=== PATIENT | male | born 1965 | race Caucasian/White ===

== ENCOUNTER 2016-10-19 11:12 | Observation (INO) ==
[2016-10-19 12:04] LABS: MANUAL DIFF NEEDED? NO; URINE CULTURE NEEDED? NO; URINE MICRO REVIEW NEEDED? NO; URINE SOURCE CLEAN CATCH
[2016-10-19 12:06] LABS: BASO% 1.5 % (0.0-0.8); EOS# 0.29 X1000 (0.0-0.7); EOS% 3.9 % (0.0-10.0); HEMATOCRIT 40.6 % (42.0-52.0); HEMOGLOBIN 14.6 g/dL (14.0-18.0); IMM GRAN# 0.05 X1000 (0.0-0.04); IMM GRAN% 0.7 % (0.0-0.5); LYMPH# 2.77 X1000 (1.2-3.4); LYMPH% 37.7 % (20.5-51.1); MCH 30.9 PG (27-31); MONO# 0.43 X1000 (0.11-0.59); MONO% 5.9 % (1.7-9.3); MPV 10.4 FL (7.4-10.4); NEUT% 50.3 % (42.2-75.2); PLT 219 X1000 (130-400); RBC 4.72 XMIL (4.7-6.1)
[2016-10-19 12:08] LABS: BILIRUBIN URINE NEGATIVE (NEGATIVE); BLOOD URINE NEGATIVE (NEGATIVE); COLOR STRAW; GLUCOSE URINE >1000 mg/dL (NEGATIVE); LEUKOCYTES URINE NEGATIVE (NEGATIVE); NITRITE URINE NEGATIVE (NEGATIVE); PH URINE 6.5; PROTEIN URINE NEGATIVE (NEGATIVE); SP GRAVITY URINE 1.022; TURBIDITY URINE CLEAR (CLEAR); UR EPITHELIAL CELLS <10 /HPF (<10); URINE BACTERIA NEGATIVE /HPF; URINE RBC <10 /HPF (<10); URINE WBC <10 /HPF (<10); UROBILINOGEN URINE NORMAL (NORMAL)
[2016-10-19 12:27] LABS: ALBUMIN 4.1 g/dL (3.5-5.0); TOTAL BILIRUBIN 0.47 mg/dL (0.20-1.00); TOTAL PROTEIN 7.1 g/dL (6.3-8.3)
[2016-10-19] MEDS ORDERED: HUMULIN R IV ONE (12:34)
[2016-10-19] MEDS: NS 2,000 ML IV ONE ×4 (12:50→15:17)
--- NOTE | 2016-10-19 13:00 | PROVIDER DOCUMENTATION ---
HPI-General Adult - General Chief Complaint: High Blood Sugar Stated Complaint: ELEVATED BLOOD SUGAR Time Seen by Provider: 10/19/16 12:34 Source: patient Allergies/Adverse Reactions: Patient Allergies Allergy/AdvReac Type Severity Reaction Status Date / Time No Known Allergies Allergy Verified 10/19/16 12:53 Home Medications: Home Medication List Medication Instructions Recorded Confirmed Last Taken Type Amphet Asp/Amphet/D-Amphet 10 mg PO QAM 10/19/16 10/19/16 1 Day Ago History [Adderall 10 mg Tablet] Bisoprolol [Zebeta] 5 mg PO DAILY 10/19/16 10/19/16 1 Day Ago History Fenofibrate,Micronized 134 mg PO QAM 10/19/16 10/19/16 1 Day Ago History [Fenofibrate] Fluticasone 50 Mcg Nasal [place] 1 spray LIZY DAILY 10/19/16 10/19/16 1 Day Ago History [Flonase] Indomethacin 50 mg PO BID 10/19/16 10/19/16 1 Day Ago History Losartan/Hydrochlorothiazide 1 each PO QAM 10/19/16 10/19/16 1 Day Ago History [Losartan-Hctz 100-25 mg Tab] Metformin [Glucophage] 500 mg PO WBREAKFAST 10/19/16 10/19/16 1 Day Ago History Omeprazole [Prilosec] 40 mg PO QAM 10/19/16 10/19/16 1 Day Ago History PRAVAstatin [Pravachol] 40 mg PO QHS 10/19/16 10/19/16 1 Day Ago History Zolpidem [Ambien] 10 mg PO HS PRN PRN 10/19/16 10/19/16 1 Day Ago History - History of Present Illness -Gen Adult Nature of Presenting Problems: patient is 51 y/o M that presents to the ER with elevated blood sugar. He had recent dx 6 months ago with DM. patient reports has had cough, body aches, fatigue over the past week in which the last 24 hours got worse. patient is a 6 beer a day drinker. Location of Pain/Injury: reports: generalized Pain Radiation: reports: no radiation Quality of Pain: reports: aching Severity: reports: mild, moderate Onset/Duration: reports: unsure Timing: reports: still present, constant Context/Activities at Onset: reports: none Modifying Factors: improves with: nothing Associated Symptoms: reports: weakness. denies: chest pain, cough, diarrhea, fever/chills, genitourinary problems, nausea, shortness of breath, vomiting Similar Symptoms Previously?: Yes Recently seen or treated by another doctor?: No - Diabetes Related Context Context: reports: high blood sugar Review of Systems - Adult - REVIEW OF SYSTEMS - ADULT Constitutional: reports: fatique. denies: chills, fever Eyes: denies: decreased vision, blurred vision, double vision Ears, Nose, Mouth & Throat: reports: sinus problem. denies: ear discharge, ear pain, throat pain, throat swelling Cardiovascular: denies: chest pain, edema, palpitations Respiratory: reports: cough. denies: dyspnea on exertion, excessive sputum production, shortness of breath, wheezing Gastrointestinal: denies: abdominal pain, diarrhea, nausea, vomiting Genitourinary: denies: dysuria, frequency, urgency Musculoskeletal: reports: muscle weakness. denies: back pain, neck pain Integumentary: reports: no symptoms reported Neurological: denies: dizziness/vertigo, headache/migraines, seizure, syncope Psychiatric: reports: no symptoms reported Endocrine: reports: no symptoms reported Hematologic/Lymphatic: reports: no symptoms reported Allergic/Immunologic: reports: no symptoms reported All Other Systems: Reviewed and Negative Past History - Adult - PAST MEDICAL HISTORY-ADULT Review of Records: reports: Old Records Reviewed, Nursing Assessment Review, Medications Reviewed Cardiovascular: reports: HTN, hyperlipidemia Respiratory: reports: sleep apnea Gastrointestinal: reports: GERD Psychiatric: reports: depression Endocrine/Immune: reports: Diabetes - PRIOR SURGERIES/PROCEDURES Surgical/Procedure History: reports: hernia repair - IMMUNIZATION STATUS Childhood Immunizations: See Nurse Assessment Flu Vaccine: See Nurse Assessment - FAMILY HISTORY Family History: reviewed, not pertinent - SOCIAL HISTORY Smoking: cigarettes, less than 1 pack/day Alcohol Use Frequency: every day Number of drinks per typical drinking period:: 5-10 drinks Living Situation: family Physical Exam-General - PHYSICAL EXAM-ADULT Initial Vital Signs Reviewed: Yes - CONSTITUTIONAL General Appearance: alert, other (ill appearing) - EYES Eyes: PERRL/EOMI, pink conjunctivae - HEAD, EARS, NOSE, MOUTH & THROAT HENMT: normocephalic/atraumatic, pharynx normal, other (dry oral mucosa). negative: angioedema - NECK Neck: full range of motion, normal inspection. negative: lymphadenopathy - RESPIRATORY Respiratory: no respiratory distress, no accessory muscle use, rhonchi (right lung), wheezing (mild expiratory) - CARDIOVASCULAR Cardiovascular: regular rate, rhythm, no edema, no murmur - GASTROINTESTINAL (ABDOMEN) Abdominal Exam: normal bowel sounds, soft, no organomegaly, no pulsatile mass, tenderness (mild RUQ), hepatomegaly, other (no evidence of ascities) - MUSCULOSKELETAL Back Exam: normal inspection, no vertebral tenderness Extremity: normal range of motion, normal inspection - SKIN Integumentary: warm/dry, other (facial flushed). negative: cyanosis, diaphoresis - NEUROLOGIC Neurologic: grossly normal, no motor/sensory deficits - PSYCHIATRIC Psych/Mental Status: normal mood/affect, normal thought content, normal thought process, oriented x 3 Progress - PLAN OF CARE/RESULTS Progress/Plan/Lab Results: 1304-hospitalist will be paged for admission Vital Signs Temp Pulse Resp BP Pulse Ox 10/19/16 11:19 97.3 F L 73 18 117/71 98 No Known Allergies Allergy (Verified 10/19/16 12:53) Amphet Asp/Amphet/D-Amphet [Adderall 10 mg Tablet] 10 mg PO QAM 10/19/16 Bisoprolol [Zebeta] 5 mg PO DAILY 10/19/16 Fenofibrate,Micronized [Fenofibrate] 134 mg PO QAM 10/19/16 Fluticasone 50 Mcg Nasal [place] [Flonase] 1 spray LIZY DAILY 10/19/16 Indomethacin 50 mg PO BID 10/19/16 Losartan/Hydrochlorothiazide [Losartan-Hctz 100-25 mg Tab] 1 each PO QAM Metformin [Glucophage] 500 mg PO WBREAKFAST 10/19/16 Omeprazole [Prilosec] 40 mg PO QAM 10/19/16 PRAVAstatin [Pravachol] 40 mg PO QHS 10/19/16 Zolpidem [Ambien] 10 mg PO HS PRN PRN 10/19/16 I&O 10/18/16 10/19/16 10/20/16 06:59 06:59 06:59 Output Total 50 Balance -50 Laboratory 10/19/16 10/19/16 10/19/16 11:50 11:50 11:50 WBC RBC Hgb Hct MCV MCH MCHC RDW Std Deviation Plt Count MPV Immature Gran % (Auto) Neut % (Auto) Lymph % (Auto) Winn % (Auto) Eos % (Auto) Baso % (Auto) Immature Gran # (Auto) Neut # (Auto) Lymph # (Auto) Winn # (Auto) Eos # (Auto) Baso # (Auto) Sodium Potassium Chloride Carbon Dioxide Anion Gap BUN Creatinine Estimated GFR/1.73 m2 BUN/Creatinine Ratio Glucose POC Glucose Calculated Osmolality Calcium Total Bilirubin AST ALT Alkaline Phosphatase Troponin T < 0.010 Total Protein Albumin Globulin Albumin/Globulin Ratio Urine Source CLEAN CATCH Urine Color STRAW Urine Turbidity CLEAR Urine pH 6.5 Ur Specific [place] 1.022 Urine Protein NEGATIVE Ur Glucose (Stick) >1000 A Ur Ketones (Stick) NEGATIVE Urine Blood NEGATIVE Urine Nitrite NEGATIVE Urine Bilirubin NEGATIVE Urobilinogen Dipstick NORMAL Urine Leukocytes NEGATIVE Urine WBC (Auto) <10 Urine RBC (Auto) <10 U Epithel Cells (Auto) <10 Urine Bacteria (Auto) NEGATIVE Acetone Level NEGATIVE 10/19/16 10/19/16 10/19/16 11:50 11:50 11:22 WBC 7.35 RBC 4.72 Hgb 14.6 Hct 40.6 L MCV 86.0 MCH 30.9 MCHC 36.0 RDW Std Deviation 12.0 Plt Count 219 MPV 10.4 Immature Gran % (Auto) 0.7 H Neut % (Auto) 50.3 Lymph % (Auto) 37.7 Winn % (Auto) 5.9 Eos % (Auto) 3.9 Baso % (Auto) 1.5 H Immature Gran # (Auto) 0.05 H Neut # (Auto) 3.70 Lymph # (Auto) 2.77 Winn # (Auto) 0.43 Eos # (Auto) 0.29 Baso # (Auto) 0.11 Sodium 127 L Potassium 5.0 Chloride 90 L Carbon Dioxide 25 Anion Gap 12 BUN 20 Creatinine 1.5 H Estimated GFR/1.73 m2 50 BUN/Creatinine Ratio 13 Glucose 548 H* POC Glucose 392 H Calculated Osmolality 283 Calcium 9.0 Total Bilirubin 0.47 AST 39 H ALT 47 H Alkaline Phosphatase 110 Troponin T Total Protein 7.1 Albumin 4.1 Globulin 3.0 Albumin/Globulin Ratio 1.4 Urine Source Urine Color Urine Turbidity Urine pH Ur Specific [place] Urine Protein Ur Glucose (Stick) Ur Ketones (Stick) Urine Blood Urine Nitrite Urine Bilirubin Urobilinogen Dipstick Urine Leukocytes Urine WBC (Auto) Urine RBC (Auto) U Epithel Cells (Auto) Urine Bacteria (Auto) Acetone Level Orders Category Date Time Status CHEST-1 VIEW [RAD] Stat Exams 10/19/16 12:37 Draft A1C HGB W EST AVG GLUCOSE [CHEM] Timed Lab 10/19/16 11:50 Received ALCOHOL BLOOD Routine Lab 10/19/16 11:50 Received CBC WITH ELECTRONIC DIFF [HEME] Stat Lab 10/19/16 11:50 Completed COMPREHENSIVE METABOLIC PANEL [CHEM] Stat Lab 10/19/16 11:50 Completed FOLATE Timed Lab 10/19/16 11:50 Received FREE T4 Timed Lab 10/19/16 11:50 Received Ketone [ACETONE SERUM] [CHEM] Stat Lab 10/19/16 11:50 Completed LIPID PROFILE W/CALC LDL [LIPIDS] Routine Lab 10/20/16 06:00 Ordered MAGNESIUM [CHEM] Timed Lab 10/19/16 11:50 Received PROTIME WITH INR [COAG] Routine Lab 10/20/16 13:45 Ordered TROPONIN T Stat Lab 10/19/16 11:50 Completed TSH Timed Lab 10/19/16 11:50 Received UA Reflex [URINALYSIS W/POSS RFLX CULT] [URINALYSIS] Lab 10/19/16 11:50 Completed Stat UDS [URINE DRUG SCREEN] Timed Lab 10/19/16 13:43 Ordered VITAMIN B12 Timed Lab 10/19/16 11:50 Received 0.9% Sodium Chloride Inj [Ns] 1,000 ml Med 10/19/16 13:15 Discontinued .ROUTE As Directed 0.9% Sodium Chloride Inj [Ns] 2,000 ml Med 10/19/16 12:34 Active IV 999 mls/hr Insulin Human Regular [Humulin R] Med 10/19/16 12:34 Discontinued 15 unit IV NOW ONE EKG [EKG] Stat Ther 10/19/16 12:36 Ordered Transfer/Admit Order [TRANSFER] Routine Transfer 10/19/16 13:34 Ordered - EKG 1 Time of EKG reading by physician:: 13:19 EKG Read and Signed by:: Carroll Friedman EKG Interpretation (*Must complete 3 of following elements*): Abnormal Rate: 71 Rhythm: NSR [place]: normal QRS: normal MT Interval: normal ST Wave: non-specific ST changes - CONSULTS/PCP/HOSPITALIST Notification #1 *Consult/PCP/Hospitalist*: Maynor Silverio ( practioner for hospitalist) Time Discussed: 13:40 Consult Disposition: Will see in ED Departure - Departure Time of Disposition Order: 13:07 DIAGNOSIS: Hyperglycemia, Hypernatremia, Dehydration URI (upper respiratory infection) Qualifiers: URI type: acute nasopharyngitis (common cold) Qualified Code(s): J00 - Acute nasopharyngitis [common cold] Disposition: ADMITTED INPATIENT 09 Certified Medical Emergency: Emergent Condition: Stable Referrals: Nasir Galan, [Primary Care Provider] - Attestation - Scribe Verification/Attestation Scribe:: Kenrick Kelley Acting as Scribe for:: Carroll Friedman Scribe documention review:: This chart was documented by a scribe and accurately reflects the service the provider performed and the decisions made by the provider. Physician Attestation - Physician Attestation I, the provider, attest to the following statement:: Carroll Friedman Physician documentation Attestation:: This documentation recorded by the scribe accurately reflects the service I personally performed and the decisions made by me.
[2016-10-19] MEDS ORDERED: NS 1,000 ML ONE (13:15)
--- NOTE | 2016-10-19 14:10 | Diag Imaging Result Document ---
PROCEDURE NAME: CHEST-1 VIEW - 10/19/2016 PORTABLE CHEST: COMPARISON: 12/21/2010. FINDINGS: The lungs are well expanded. The heart is not enlarged. The vessels are not distended. No pneumonia. No pleural effusions identified. There is a granuloma in the mid right lung. IMPRESSION: Negative chest.
[2016-10-19 14:33] LABS: HEMOGLOBIN A1C 10.9 % (4.8-6.0)
[2016-10-19] MEDS ORDERED: SODIUM CHLORIDE 0.9% INJ SCH (15:19)
[2016-10-19] MEDS ORDERED: ATIVAN IV PRN ×2 (15:19)
[2016-10-19] MEDS ORDERED: D5 1/2 NS 1,000 ML IV ONE (15:19)
[2016-10-19] MEDS ORDERED: NICODERM PATCH TD PRN (15:19)
[2016-10-19] MEDS ORDERED: ZOFRAN IV PRN (15:19)
[2016-10-19] MEDS: DUONEB (A & A) INH SCH ×3 (15:30→23:49)
[2016-10-19 16:23] LABS: UR AMPHETAMINES QUAL NONE DETECTED (NONE DETECT); UR BARBITUATES QUAL NONE DETECTED (NONE DETECT); UR BENZODIAZEPIN QUAL NONE DETECTED (NONE DETECT); UR CANNABINOIDS QUAL NONE DETECTED (NONE DETECT); UR COCAINE QUAL NONE DETECTED (NONE DETECT); UR METHADONE QUAL NONE DETECTED (NONE DETECT); UR OPIATES QUAL PRESUMPTIVE POSITIVE (NONE DETECT); UR OXYCODONE QUAL NONE DETECTED (NONE DETECT); UR PCP QUAL NONE DETECTED (NONE DETECT)
[2016-10-19] MEDS: PROTONIX IV SCH (17:05)
[2016-10-19] MEDS: LOVENOX SUBQ SCH (17:06)
--- NOTE | 2016-10-19 17:29 | HISTORY AND PHYSICAL ---
HISTORY OF PRESENT ILLNESS: Ms. Elmore is a 51-year-old who apparently was diagnosed with diabetes 6 months ago. He was put on metformin. I think Dr. Trivedi is his doctor. He stated he did not take the medicine. He drinks about 6-7 beers a day. He has felt bad for the last month, 3-4 weeks. Very tired. 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 When he came in, sugars were above 500. I did not see acidosis. PAST MEDICAL HISTORY: 1. Hypertriglyceridemia. Hypercholesterolemia. 2. Newly diagnosed diabetes mellitus type 2. 3. Hypertension. 4. Some osteoarthritis. 5. He has apparently hurt his back with his work and has chronic lower back pain. 6. He has a history gastroesophageal reflux. FAMILY HISTORY: Strong family history for diabetes, all of his uncles and a good number of them had significant peripheral vascular disease. REVIEW OF SYSTEMS: General: He feels like he has lost some weight. Not sure. No fever or chills. HEENT: Unremarkable. Respiratory: No increased work of breathing or dyspnea. Cardiovascular: No chest pain or tachy palpitation. GI/: Does not report any change in bowels. Endocrinologic/Hematologic: No significant history other than diabetes. PHYSICAL EXAMINATION: GENERAL: Awake, alert, does not really want to come in the hospital, but is oriented x3. He was pleasant, VITAL SIGNS: Temperature 97.3 degrees, pulse 70, respirations 18, blood pressure 117/71. HEENT: Pupils are equal and round. CVP less than 6 cm. LUNGS: Clear in all lung betancur. CARDIOVASCULAR: Regular rhythm and rate without murmur or S3. ABDOMEN: Soft. SKIN: Warm and dry. Weight 205 pounds. : Urine output very little in the ER thus far. Fingerstick for his blood sugar 548. LABORATORY: White blood cell count 7350, hematocrit 40, platelet count 219,000. Sodium 127, potassium 5, chloride 90, bicarb 25, BUN 20, creatinine 1.3. Blood sugar 548. Calcium 9. Liver functions, AST 39, ALT 110, albumin 4.1. Urinalysis: Sugar greater than 1000. Did not see any ketones. ASSESSMENT AND PLAN: 1. Hyperosmolar hyperglycemic state. We will give some fluids. He does not appear to have much intravascular volume depletion at this point, but I do think he has probably got a little bit. His creatinine was 1.5, do not know what his baseline is, so we will give D5 1/2 normal saline and will run at 125. The reason I am doing that is to try and keep his sugars. His sugars have come down to the 300 range. Try and keep them from dropping too quickly. We are going to start him on a split dose of Humulin 70-30, 8 units twice a day. Put him on sliding scale and try and get him some diabetic training as far as nutrition. We did have a discussion about the fact that he is going to have to quit drinking, and that we will not be able to control his sugars to any degree with the alcohol. He was made aware of that. 2. There is a good possibility of alcohol withdrawal and possible delirium tremens. 3. Hypercholesterolemia, hypertriglyceridemia. Continue his current medications. 4. Hypertension, aware. 5. History of gastroesophageal reflux, aware. 6. Some lower back pain. Osteoarthritis.
[2016-10-19] MEDS: HUMALOG SUBQ SCH ×2 (17:32→23:15)
[2016-10-19] MEDS: HUMULIN 70/30 SUBQ SCH ×2 (17:33→23:03)
[2016-10-19] MEDS: PRILOSEC PO SCH (23:18)
[2016-10-20] MEDS: DUONEB (A & A) INH SCH ×6 (03:30→23:35)
[2016-10-20 05:05] LABS: HEMATOCRIT 37.4 % (42.0-52.0); HEMOGLOBIN 13.2 g/dL (14.0-18.0); MCHC 35.3 g/dL (33-37); MCV 87.8 FL (81-99); MPV 10.4 FL (7.4-10.4); RBC 4.26 XMIL (4.7-6.1)
[2016-10-20 05:14] LABS: INR 1.04
--- NOTE | 2016-10-20 05:18 | EKG Report ---
Test Performed on : 10/19/2016 1:10:36 PM Test Reason : CP Blood Pressure : / mmHG Vent. Rate : 071 BPM Atrial Rate : 071 BPM P-R Int : 154 ms QRS Dur : 098 ms QT Int : 406 ms P-R-T Axes : 051 082 075 degrees QTc Int : 441 ms Normal sinus rhythm. ST & T wave abnormality, consider anterior ischemia Abnormal ECG When compared with ECG of 21-DEC-2010 21:29, No significant change was found Unconfirmed Result
[2016-10-20 05:22] LABS: AGAP 14; BUN 15 mg/dL (8-22); CALCIUM 8.7 mg/dL (8.8-10.2); CHLORIDE 102 mmol/L (98-107); COSMO 284; HDL 13 mg/dL (35-55); POTASSIUM 3.6 mmol/L (3.5-5.1); SODIUM 138 mmol/L (136-145); TCO2 22 mmol/L (25-35); TRIGLYCERIDES 716 mg/dL (39-160)
[2016-10-20] MEDS: HUMALOG SUBQ SCH ×4 (06:03→21:49)
[2016-10-20] MEDS ORDERED: INSULIN PEN NEEDLES ONE (06:29)
[2016-10-20] MEDS ORDERED: HUMULIN 70/30 SUBQ SCH ×2 (08:00→17:00)
[2016-10-20] MEDS: ZEBETA PO SCH (08:54)
[2016-10-20] MEDS: TRICOR PO SCH (08:54)
[2016-10-20] MEDS: FLONASE NAS SCH (08:55)
[2016-10-20] MEDS: NORCO-10 PO PRN ×2 (11:55→19:03)
[2016-10-20] MEDS: PROTONIX IV SCH (14:40)
[2016-10-20] MEDS: LOVENOX SUBQ SCH (14:41)
--- NOTE | 2016-10-20 16:12 | PROGRESS NOTE ---
DATE: 10/20/2016 SUBJECTIVE: This patient states that he feels much better, he is still complaining of blurry vision, but otherwise he feels much better. We had a really large conversation about diabetes and problems related with diabetes, including neuropathy, nephropathy, retinopathy and increase of the high risk of heart conditions, he seems to understand, family members at the bedside. OBJECTIVE: Vital Signs: Temperature 98 degrees, pulse 76, respiratory rate 18, blood pressure 128/66, oxygen saturation 98% on room air. HEENT: Head normocephalic. No trauma. PERRLA. Neck: Supple. No JVD. No masses. Central trachea. Chest: Clear to auscultation. No wheezing. No rales. Abdomen: Soft, nontender, nondistended. No hepatosplenomegaly. Extremities: No edema. No clubbing. No cyanosis. Neurological: The patient is alert and oriented x3. No focal neurological deficits. LABORATORY: WBC 6.6, hemoglobin 13.2, hematocrit 37.4, platelet 194,000. Sodium 138, potassium 3.6, chloride 102, bicarbonate 22, BUN 15, creatinine is 1.2, glucose 237. Calcium 8.7. Hemoglobin A1c is 10.9. Triglycerides 716. Cholesterol 149. ASSESSMENT AND PLAN: 1. Hyperosmolar hyperglycemic state, this is getting better, he received IV fluids and also he is tolerating p.o. at this moment. He is not complaining of nausea, vomiting. No diarrhea. No constipation. No chest pain. No shortness of breath. He is still complaining of blurry vision though. I put this patient on insulin 70/30, 12 in the morning and 6 in the afternoon we will continue with sliding scale. This patient told me that he was diagnosed a long time ago with diabetes and he stopped taking his medications. 2. Alcohol abuse, there is a good possibility of alcohol withdrawal and possible delirium tremens. At this moment, he is not having any kind of symptoms, but we are going to pull p.r.n. medication for this patient. 3. Hypertriglyceridemia, continue with his current medications. 4. Hypertension, stable. 5. History of gastroesophageal reflux disease, aware. We will continue with proton pump inhibitor. 6. History of low back pain. I will continue with his home medications.
[2016-10-20] MEDS ORDERED: AMBIEN PO SCH (21:00)
[2016-10-20] MEDS: PRILOSEC PO SCH (21:51)
[2016-10-21] MEDS: DUONEB (A & A) INH SCH ×3 (03:33→10:59)
[2016-10-21] MEDS: NORCO-10 PO PRN ×2 (04:15→10:15)
[2016-10-21] MEDS: HUMALOG SUBQ SCH ×2 (06:04→12:44)
[2016-10-21 06:42] LABS: HEMOGLOBIN 13.6 g/dL (14.0-18.0); MCH 31.1 PG (27-31); MCHC 34.9 g/dL (33-37); MPV 10.1 FL (7.4-10.4); RBC 4.38 XMIL (4.7-6.1)
[2016-10-21 07:02] LABS: AGAP 14; BUN 14 mg/dL (8-22); CALCIUM 8.8 mg/dL (8.8-10.2); CHLORIDE 99 mmol/L (98-107); COSMO 280; SODIUM 135 mmol/L (136-145); TCO2 22 mmol/L (25-35)
[2016-10-21] MEDS ORDERED: HUMULIN 70/30 SUBQ SCH ×3 (08:00→09:00)
[2016-10-21] MEDS: FLONASE NAS SCH (08:21)
[2016-10-21] MEDS: ZEBETA PO SCH (08:22)
[2016-10-21] MEDS: TRICOR PO SCH (08:22)
[2016-10-21 11:21] VITALS: BP 108/65
--- NOTE | 2016-10-21 11:31 | DISCHARGE SUMMARY ---
ADMISSION DATE: 10/19/2016 DISCHARGE DATE: 10/21/2016 DATE OF ADMISSION: 10/19/2016. DATE OF DISCHARGE: 10/21/2016. CONSULTATIONS: None. PERTINENT PROCEDURES: Chest x-ray: Negative. DISCHARGE DIAGNOSIS: 1. Hyperosmolaric, hyperglycemic state. Resolved patient tolerating p.o. 2. Alcohol abuse without any signs and symptoms of withdrawal and/or delirium tremens. Patient has been educated against cessation. 3. Hypertriglyceridemia. Continue with home medications. 4. Hypertension. Stable. 5. Gastroesophageal reflux disease. Continue PPI. 6. Lower back pain history. Continue with home medications. HOSPITAL COURSE: Briefly, Mr. Elmore is a 51-year-old male who was diagnosed with diabetes mellitus 6 months ago. He was placed on metformin by Dr. Galan. 1. Hypertriglyceridemia. 2. Hypercholesterolemia. 3. Hypertension. 4. Osteoarthritis. 5. Chronic lower back pain. 6. Gastroesophageal reflux disease. 7. Alcohol abuse. Patient drinks about 6-7 beers per day. He states that he has felt bad for the last 3-4 weeks. He was very tired. On admission, his blood sugars were 500. There was no signs of acidosis patient was admitted for a hyperosmolar, hyperglycemia state. He was given IV fluids as well as monitored his sugars closely and start him on a split dose of 70/30 as well as sliding scale. It was discussed with the patient his alcohol abuse and the need for cessation and that it would be hard to control his sugars to any degree with the alcohol. The patient was monitored closely for any withdrawal or delirium tremens. The patient did remain stable. He is appropriate for discharge home today. VITAL SIGNS: Temperature is 98.1 degrees, heart rate 74, respirations 18, blood pressure 116/73, O2 is 97% on room air. DISCHARGE MEDICATIONS: As per Dr. Leal: 1. Flonase 1 spray nasally daily. 2. Losartan/hydrochlorothiazide 125 1 each p.o. in the morning. 3. Pravachol 40 mg p.o. at bedtime. 4. [place] 10/325, 1 each p.o. t.i.d. p.r.n. 5. Ambien 5-10 mg p.o. at bedtime. 6. Fenofibrate 134 mg p.o. in the morning. 7. Glucophage 500 mg p.o. with breakfast. 8. Humulin 70 30, 10 units subcutaneously in the evening. 9. Humulin 70 30, 20 units subcutaneously in the morning. 10. Prilosec 40 mg p.o. in the morning. 11. 5 mg p.o. daily. FOLLOWUP: Patient is being discharged home. He will need to follow up with Dr. Nasir Galan in 1 week, as well as educated on a diabetic diet as well as educated on alcohol abuse as well as the means to quit. Patient can return to the Emergency Department for any worsening of symptoms. TIME SPENT: 30 minutes. This is BENTLEY Hou, doing a discharge summary for Dr. Leal. Dictated by BENTLEY Hou for Ricardo Mendoza MD MTDD
[2016-10-21] MEDS ORDERED: INSULIN PEN NEEDLES ONE (12:38)
== END 2016-10-21 13:19 | disposition home or self-care (01) ==
LOC: ED 11:12 → 4N 14:24 → UNDOADMIN 14:24 → EDIPHOLD 14:24 → INTOOBSV 14:24
PROVIDERS: ATTEND Internal Medicine
DX: E87.0 Hyperosmolality and hypernatremia (principal); E11.65 Type 2 diabetes mellitus with hyperglycemia; F10.10 Alcohol abuse, uncomplicated; E86.0 Dehydration; E78.00 Pure hypercholesterolemia, unspecified; E78.1 Pure hyperglyceridemia; I10 Essential (primary) hypertension; T38.3X6A Underdosing of insulin and oral hypoglycemic [antidiabetic] drugs, initial encounter; Z91.128 Patient's intentional underdosing of medication regimen for other reason; G89.29 Other chronic pain; H53.8 Other visual disturbances; K21.9 Gastro-esophageal reflux disease without esophagitis; M54.5 Low back pain; R05 Cough; R53.83 Other fatigue; F17.210 Nicotine dependence, cigarettes, uncomplicated; R10.811 Right upper quadrant abdominal tenderness; M19.90 Unspecified osteoarthritis, unspecified site; Z79.84 Long term (current) use of oral hypoglycemic drugs; Z79.51 Long term (current) use of inhaled steroids; Z79.899 Other long term (current) drug therapy; Z83.3 Family history of diabetes mellitus
CPT/HCPCS: 36415; 71010; 80048; 80053; 80061; 81001; 82009; 82607; 82746; 82948; 83036; 83735; 84439; 84443; 84484; 85025; 85027; 85610; 93005; 94640; 94761; 94762; 96365; 96366; 96372; 96375; C9113; G0480; J1650; J1815; J7030; 80320; 80324; 80345; 80346; 80349; 80353; 80358; 80361; 80365; 83992; S0164